=== PATIENT | male | born 1995 | race Two or more races ===

== ENCOUNTER 2024-11-28 09:17 | Outpatient (AMB) | payer OTHER, SELFPAY ==
--- NOTE | 2024-11-28 09:17 | MHC.PC.OV ---
Vital Signs 11/28/24 09:24 Height 5 ft 3.39 in Weight 146 lb BMI 25.5 BP 110/61 Respiration 16 Pulse 72 Pulse Source Pulse Oximeter Temp 97.5 F Temp Source Temporal Artery Scan Pulse Oximetry (%) 99 Oxygen Delivery Method Room Air Intake Visit Reasons: establish care Pay Station Department Manager Required: Yes Pay Station Department Manager Language: Indonesian Creole Pay Station Department Manager Name: [id number] Accompanied by: Self / Same As Patient Allergies No Known Allergies Allergy (Verified 11/28/24 09:40) Medication List - Last Reconciled 11/28/24 by Soumya Marshall PA-C No Known Home Meds Tobacco use date assessed: 11/28/24 Dental Screening Dental Screen Date: 11/28/24 Did you have a dental visit in the last 12 months?: Yes Did you have a dental problem in the last 6 months where you did not have access to dental care?: No Was dental information given to patient?: Patient has dentist HPI establish care HPI Details The patient is a 29-year-old male presenting for establishment of primary care, for an annual physical exam and in addition to discuss intermittent headaches, back pain, groin pain. The patient reports experiencing headaches, back pain and groin pain intermittently. These symptoms occur sometimes and are not constant. He also mentions occasional groin pain without any associated urinary symptoms such as discharge or burning during urination. The patient denies any significant past medical history and is not currently taking any medications. There is no family history of cancer or other significant illnesses. He denies any other abdominal pain, chest pain, or shortness of breath at the time of the visit. The patient has not seen a doctor in quite some time, prompting the recommendation for blood work to assess for anemia, kidney function, liver function, diabetes, and sexually transmitted diseases. He is advised to undergo fasting before the blood work. The patient also reports symptoms of anxiety and depression, for which a referral to a therapist or psychiatrist is considered. Social Patient is Creole speaking [facility] Medical History (Updated 11/28/24 @ 10:03 by Soumya Marshall PA-C) Anxiety and depression Groin pain Annual physical exam Intermittent headache Back pain LLQ abdominal pain Polish Creole speech language therapist needed Depression General medical exam Establishing care with new doctor, encounter for Family History Father No problems noted. Mother No problems noted. Social History Housing: Apartment Alcohol intake: current Alcohol intake frequency: holidays/special occasions only Alcohol type: beer Patient Tobacco Use Status: Never used Tobacco service: No Current occupational status: employed Cognitive needs: No Hearing needs: No Vision needs: No Questionnaire PHQ-9 Over the last 2 weeks, how often have you been bothered by any of the following problems? 1. Little interest or pleasure in doing things: nearly every day 2. Feeling down, depressed, or hopeless: several days 3. Trouble falling or staying asleep, or sleeping too much: nearly every day 4. Feeling tired or having little energy: nearly every day 5. Poor appetite or overeating: not at all 6. Feeling bad about yourself - or that you are a failure or have let yourself or your family down: not at all 7. Trouble concentrating on things, such as reading the newspaper or watching television: nearly every day 8. Moving or speaking so slowly that other people could have noticed. Or the opposite - being so fidgety or restless that you have been moving around a lot more than usual: several days 9. Thoughts that you would be better off or of hurting yourself in some way: not at all Total score: 14 Depression Screening Interpretation: Positive Depression Screening Follow-up: Community Mental Health Worker F/U Depression Screening Done: Yes 58200 - PHQ-9 Billing: Yes Source: Developed by Drs. Maxx Grace, Valeri Post, Lv Suazo and colleagues, with an educational andrew from [employer]. Thrive Questionnaire Date Thrive assessed: 11/28/24 I am a: Patient What is your living situation today?: I have a steady place to live Within the past 12 months, did the food you bought not last and you didn't have the money to get more?: Never true Within the past 12 months, did you worry whether your food would run out before you got money to buy more?: Never true Do you have trouble paying for medicines?: No Do you have trouble getting transportation to medical appointments?: No Do you have trouble paying your heating and electricity bill?: No Do you have trouble taking care of your child, family member or friend?: No Do you have trouble with day-to-day activities such as bathing, preparing meals, shopping, managing finances, etc.?: No Are you currently unemployed and looking for a job?: No Are you interested in more education?: No Please select the resources that you would like help with: None THRIVE Score: 0 AUDIT C Alcohol Use Questionnaire (AUDIT-C) 1. How often do you have a drink containing alcohol?: Monthly or less 2. How many drinks containing alcohol do you have on a typical day when you are drinking?: 1 or 2 3. How often do you have six or more drinks on one occasion?: Never Total Score: 1 Score Reviewed/Action Taken: No HEDY-7 AMB Questionnaire HEDY-7 Date HEDY - 7 assessed: 11/28/24 Feeling nervous, anxious, or on edge: 0 = Not at all Not being able to stop or control worryin = Not at all Worrying too much about different things: 0 = Not at all Trouble relaxin = Not at all Being so restless that it is hard to sit still: 0 = Not at all Becoming easily annoyed or irritable: 0 = Not at all Feeling afraid as if something awful might happen: 0 = Not at all Total HEDY-7 score (0-4 normal; 5-9 mild; 10-14 moderate; 15-21 severe): 0 Source: Developed by Drs. Maxx Grace, Valeri Post, Lv Suazo and colleagues, with an educational andrew from [employer]. HEDY-7 Assessment Billing HEDY-7 Assessment Tool: HEDY-7 Assessment 19252 Review of Systems Const Details: - Cardiovascular: Denies chest pain. Denies orthopnea or syncope. - Neurological: Reports intermittent headaches. Denies dizziness or balance issues. - Musculoskeletal: Reports intermittent back pain. Denies joint swelling or stiffness. - Genitourinary: Reports occasional groin pain. Denies dysuria or hematuria. - Psychological: Reports anxiety and depression. Physical exam (Primary Care) Vital Signs: Last Vital Signs Temp 97.5 F 11/28/24 09:24 Pulse 72 11/28/24 09:24 Resp 16 11/28/24 09:24 BP 110/61 11/28/24 09:24 Pulse Ox 99 11/28/24 09:24 Oxygen Delivery Method Room Air 11/28/24 09:24 Care Plan Goal for BP management: <140/90 BMI result Body Mass Index 25.5 normal bmi Tobacco/Smoking Status: Tobacco use Status Tobacco use date assessed 11/28/24 11/28/24 09:23 Patient Tobacco Use Status Never used Tobacco 11/28/24 09:31 PHQ-9: PHQ-9 Score PHQ-9: Total score 14 11/28/24 09:38 Depression Screening Interpretation: Positive Depression Screening Follow-up: Community Mental Health Worker F/U Thrive Assessment: Date of Thrive Assessment Date Thrive assessed 11/28/24 11/28/24 09:23 Const Other: Appearance: Alert. Oriented X3. No acute distress. Head: Normal external exam. Normocephalic. Atraumatic. Eyes: Pupils are equal, round, and reactive to light. Extraocular movements intact. Conjunctiva and sclera normal. Eyelids normal. Ears: External auditory canal normal. Tympanic membranes normal. Throat: Pharynx normal. Uvula midline. Moist mucous membranes. Neck: Normal inspection. Neck supple. Full range of motion. No adenopathy. Thyroid Normal. No meningeal signs. No neck mass noted. Cardiovascular: Normal heart rate and rhythm. Heart sound normal. No murmurs noted. Pulses normal throughout. Respiratory: No respiratory distress. Painless inspiration. Breath sounds normal. No wheezes/rales/rhonchi noted. Chest nontender. No accessory muscle usage noted or decreased air movement noted. Abdomen: Soft and mild tenderness to palpation to left lower quadrant/inguinal area. Bowel sounds normal in all 4 quadrants. No distention noted. No organomegaly noted. No visible injury noted. Back: Pain noted on both sides upon tapping over the kidneys. Full range of motion noted. Skin: Skin warm and dry. Normal skin color. Normal skin turgor. No rashes/lesions/lacerations noted. Extremities: No lower extremity edema. Extremities exhibit normal range of motion. Extremities nontender. Neuro: Oriented X 3. No motor deficit. No sensory deficit. Reflexes normal. Coding Level of Care Code New Pt Level 4 (55591) New Pt Prev Care 18-39yr(56402 Diagnoses Annual physical exam Z00.00 Establishing care with new doctor, encounter for Z76.89 Intermittent headache R51.9 Back pain M54.9 Groin pain R10.30 Anxiety and depression F41.9; F32.A Additional Codes PHQ-9 - 31064 - PHQ-9 Billing: Yes ([id number]) HEDY-7 Assessment Billing - HEDY-7 Assessment Tool: HEDY-7 Assessment 71678 ([id number]) Time Spent (min) 60 Assessment & Plan Assessment & Plan (1) Annual physical exam: Code(s): Z00.00 - Encounter for general adult medical examination without abnormal findings Category: Medical (2) Establishing care with new doctor, encounter for: Code(s): Z76.89 - Persons encountering health services in other specified circumstances Category: Medical (3) Intermittent headache: Code(s): R51.9 - Headache, unspecified Category: Medical Plan: The patient experiences intermittent headaches. Blood work is ordered to rule out underlying causes such as anemia or metabolic disorders. Patient has a normal neuro exam. Condition is not present at this time and intermittent condition is chronic and stable will continue to monitor. (4) Back pain: Code(s): M54.9 - Dorsalgia, unspecified Category: Medical Plan: The patient reports intermittent back pain. Blood work is ordered to assess for any underlying conditions contributing to the pain. Lumbar spine x-ray ordered. Condition is chronic and stable will continue to monitor. (5) Groin pain: Code(s): R10.30 - Lower abdominal pain, unspecified Category: Medical Plan: The patient reports occasional groin pain without urinary symptoms. A CT scan of the abdomen and pelvis is ordered to evaluate the cause of the pain. (6) Anxiety and depression: Code(s): F41.9 - Anxiety disorder, unspecified; F32.A - Depression, unspecified Category: Medical Plan: The patient reports symptoms of anxiety and depression. A referral to a therapist or psychiatrist is considered for further evaluation and management. Plan Plan Patient was informed and verbally consented to the use of an ambient scribe for clinic note documentation during this visit. 1. Headache The patient experiences intermittent headaches. Blood work is ordered to rule out underlying causes such as anemia or metabolic disorders. 2. Back Pain The patient reports intermittent back pain. Blood work is ordered to assess for any underlying conditions contributing to the pain. X-ray ordered. 3. Groin Pain The patient reports occasional groin pain without urinary symptoms. A CT scan of the abdomen and pelvis is ordered to evaluate the cause of the pain. 4. Anxiety And Depression The patient reports symptoms of anxiety and depression. A referral to a therapist or psychiatrist is considered for further evaluation and management. 5. Preventative Care Blood work is recommended to assess overall health, including screening for sexually transmitted diseases. The patient is advised to fast before the blood work. I discussed with the patient the importance of conducting blood work to assess his overall health, including checking for anemia, kidney and liver function, diabetes, and sexually transmitted diseases. I also recommended a CT scan to evaluate the cause of his groin pain and considered a referral to a therapist or psychiatrist for his anxiety and depression symptoms. The patient was advised to fast before the blood work and was informed about the follow-up process based on the results. Orders: Orders C Reactive Protein Today Z00.00 - Encounter for general adult medical examination without abnormal findings Complete Blood Count Auto Diff Today Z00.00 - Encounter for general adult medical examination without abnormal findings Hemoglobin A1c Today Z00.00 - Encounter for general adult medical examination without abnormal findings TSH reflex Free T4 Today Z00.00 - Encounter for general adult medical examination without abnormal findings Creatine Kinase Total Today Z00.00 - Encounter for general adult medical examination without abnormal findings Vitamin B12 and Folate Today Z00.00 - Encounter for general adult medical examination without abnormal findings Magnesium Today Z00.00 - Encounter for general adult medical examination without abnormal findings CT NG by PCR Today Z00.00 - Encounter for general adult medical examination without abnormal findings, Z76.89 - Persons encountering health services in other specified circumstances Comprehensive [place]. Panel Fast Today Z00.00 - Encounter for general adult medical examination without abnormal findings Liver Panel Today Z00.00 - Encounter for general adult medical examination without abnormal findings Lipid Panel Today Z00.00 - Encounter for general adult medical examination without abnormal findings PSA,Total (Free>4and<10) Today Z00.00 - Encounter for general adult medical examination without abnormal findings Vitamin D 25-OH Total Today Z00.00 - Encounter for general adult medical examination without abnormal findings HIV Ab/Ag Today Z20.2 - Contact with and (suspected) exposure to infections with a predominantly sexual mode of transmission RPR Monitor reflex titer Today Z00.00 - Encounter for general adult medical examination without abnormal findings Hepatitis A,B,C Profile Today Z00.00 - Encounter for general adult medical examination without abnormal findings T Spot TB Today Z00.00 - Encounter for general adult medical examination without abnormal findings, Z76.89 - Persons encountering health services in other specified circumstances ECG 12 lead EKG Today F32.A - Depression, unspecified, Z00.00 - Encounter for general adult medical examination without abnormal findings, Z75.8 - Other problems related to medical facilities and other health care, Z76.89 - Persons encountering health services in other specified circumstances CT abdomen pelvis w IV con Today R10.32 - Left lower quadrant pain, Z75.8 - Other problems related to medical facilities and other health care XR lumbar spine 4V min Today M54.9 - Dorsalgia, unspecified Referrals Psychiatry Outpatient Consultation Service F32.A - Depression, unspecified, F41.9 - Anxiety disorder, unspecified, Z75.8 - Other problems related to medical facilities and other health care Psychiatry Referral F32.A - Depression, unspecified, Z75.8 - Other problems related to medical facilities and other health care Patient Instructions: - Fast for 10-12 hours before going for blood work. You can drink water. - Visit the lab for blood work without an appointment. The address is provided. - Expect a call for a CT scan appointment to evaluate groin pain. - Consider seeing a therapist or psychiatrist for anxiety and depression.
[2024-11-28 09:24] VITALS: BP 110/61; PULSE 72; RESP 16; TEMP 36.4; O2SAT 99; BMI 25.5
== END 2024-11-28 09:56 | disposition home or self-care (01) ==
LOC: HO.HMCSH 09:17
PROVIDERS: PCP Internal Medicine; Visit Provider Physician Assistant Medical
DX: Z00.00 Encounter for general adult medical examination without abnormal findings (principal); R51.9 Headache, unspecified; M54.9 Dorsalgia, unspecified; R10.30 Lower abdominal pain, unspecified; F41.9 Anxiety disorder, unspecified; F32.A Depression, unspecified; Z76.89 Persons encountering health services in other specified circumstances

== ENCOUNTER → 2024-11-28 09:17 | Outpatient (BNVA) | payer OTHER, SELFPAY | PROVIDERS: PCP Internal Medicine; Visit Provider Physician Assistant Medical | DX: Z00.00 Encounter for general adult medical examination without abnormal findings (principal); R51.9 Headache, unspecified; R10.30 Lower abdominal pain, unspecified; M54.9 Dorsalgia, unspecified; F41.9 Anxiety disorder, unspecified; F32.A Depression, unspecified; Z76.89 Persons encountering health services in other specified circumstances | CPT/HCPCS: 96127; 99202; 99385 ==

== ENCOUNTER 2024-12-02 09:58 | Outpatient (AMB) | payer OTHER, SELFPAY ==
--- NOTE | 2024-12-02 10:04 | AM.OFFWIN_ITS ---
Intake Vital Signs 12/02/24 10:05 Height 5 ft 3 in Weight 147 lb BMI 26.0 BP 110/66 Blood Pressure Location Lt brachial Position Sitting Pulse 66 Pulse Source Pulse Oximeter Temp 98.6 F Temp Source Oral Pulse Oximetry (%) 99 Oxygen Delivery Method Room Air Intake Visit Reasons: EP Pain in groin area Intake Note: pt presents with left lower abdominal pain and low back pain for 5 months Patient Tobacco Use Status: Never used Tobacco Allergies No Known Allergies Allergy (Verified 12/02/24 10:08) Medication List - Last Reconciled 12/02/24 by Blayne Tilley MD No Known Home Meds Do you need a note to return to daycare/school/sports/work: No HPI EP Pain in groin area HPI Details History - The patient is a 29-year-old male pres enting with urinary frequency - Urinary frequency has been persistent, with no associated dysuria or penile discharge. - sometimes accompanied by back pain. - The patient just had his PE with PCP o n 23 of this month, i see there is lab order in system that he has not done yet. - I have added UA Problem List - Urinary frequency - Back pain Patient Instructions - Follow up with the lab next door for u rine and blood tests . Review of Systems - General: No fever no chills - Neurological: No headaches no dizziness - Ear nose throat: No sore throat no hearing difficulty no ear pain - Cardiovascular: No syncope, no chest pain, no palpitations - Gastrointestinal: No nausea vomiting or diarrhea Physical Exam - General: No acute distress - HEENT: No acute findings - Neck: Supple - Respiratory system: Able to talk in f ull sentences, no audible wheeze - Cardiovascular: S1-S2 regular in rate and rhythm - Gastrointestinal: No pain - Genital exam benign - Back mild discomfort left flank with p ercussion no mid back pain - Extremities: No new findings - ROUTING MACHINE OPERATOR: Alert awake oriented x3 motor se nsory intact - Skin: Normal turgor PFSH Medical History Anxiety and depression Groin pain Annual physical exam Intermittent headache Back pain LLQ abdominal pain Serbian Creole recovery room nurse needed Depression General medical exam Establishing care with new doctor, encounter for Family History Father No problems noted. Mother No problems noted. Social History Housing: Apartment Alcohol intake: current Alcohol intake frequency: holidays/special occasions only Alcohol type: beer Patient Tobacco Use Status: Never used Tobacco service: No Current occupational status: employed Cognitive needs: No Hearing needs: No Vision needs: No Physical Exam Vital Signs: Last Vital Signs Temp 98.6 F 12/02/24 10:05 Pulse 66 12/02/24 10:05 BP 110/66 12/02/24 10:05 Pulse Ox 99 12/02/24 10:05 Oxygen Delivery Method Room Air 12/02/24 10:05 BMI result Body Mass Index 26.0 Assessment & Plan Assessment & Plan (1) Frequent urination: Code(s): R35.0 - Frequency of micturition Plan History - The patient is a 29-year-old male presenting with urinary frequency - Urinary frequency has been persistent, with no associated dysuria or penile discharge. - sometimes accompanied by back pain. - The patient just had his PE with PCP on of this month, i see there is lab order in system that he has not done yet. - I have added UA Problem List - Urinary frequency - Back pain Patient Instructions - Follow up with the lab next door for urine and blood tests . Orders: Orders UA CC w/rflx Micro + Cult Today R35.0 - Frequency of micturition Coding Level of Care Code Est Pt Level 3 (58644) Diagnoses Frequent urination R35.0
[2024-12-02 10:05] VITALS: BP 110/66; PULSE 66; TEMP 37; O2SAT 99; BMI 26.0
== END 2024-12-02 11:17 | disposition home or self-care (01) ==
PROVIDERS: PCP Internal Medicine; Visit Provider Internal Medicine
DX: R35.0 Frequency of micturition (principal)

== ENCOUNTER 2024-12-02 09:58 | Outpatient (REF) | payer OTHER, SELFPAY ==
[2024-12-02 13:01] LABS: MANUAL DIFF FLAG NO
[2024-12-02 13:09] LABS: Appearance Urine Clear; Color Urine Yellow; Glucose Urine UA Negative (Negative); Leukocyte Esterase Urine Negative (Negative); Nitrite Urine Negative (Negative); Specific Gravity - Urine 1.015 (1.005-1.025); Urine Blood Negative (Negative); Urine Ketones Negative (Negative); Urine Protein Negative (Neg-Trace)
[2024-12-02 13:12] LABS: Basophils Percent Auto 0.3 % (0-2); Eosinophils Absolute Auto 0.1 X10*3/uL (0.0-0.4); Hematocrit 46.7 % (42.0-52.0); Hemoglobin 14.2 g/dl (14.0-18.0); Imm Gran Abs Auto 0.03 X10*3/uL (0.00-0.03); Imm Gran Pct Auto 0.4 % (0.0-0.4); Lymphocytes Absolute Auto 2.2 X10*3/uL (1.2-4.9); Lymphocytes Percent Auto 30.9 % (20-40); Mean Corpuscular HGB Conc 30.4 g/dl (31.0-36.0); Mean Corpuscular Volume 72.4 fL (80.0-98.0); Mean Platelet Volume 11.2 fL (9.4-12.4); Monocytes Absolute Auto 0.4 X10*3/uL (0.1-1.2); Monocytes Percent Auto 6.1 % (2-11); Neutrophils Absolute Auto 4.5 x10*3/uL (2.0-8.3); Neutrophils Percent Auto 61.3 % (45-73); Platelet Count 186 X10*3/uL (160-400); Red Blood Count 6.45 X10*6/uL (4.60-5.80); Red Cell Distribution Width 15.9 % (11.0-16.0); White Blood Count 7.3 X10*3/uL (4.8-10.8)
[2024-12-02 13:29] LABS: Estimated Average Glucose 123 mg/dL; Hemoglobin A1c % 5.9 % (<6.0)
[2024-12-02 13:55] LABS: Alanine Aminotransferase 32 U/L (0-40); Albumin Level 4.8 g/dL (3.5-5.0); Alkaline Phosphatase 59 U/L (39-117); Anion Gap 9 (12-20); Aspartate Amino Transferase 30 U/L (5-37); Bilirubin Direct < 0.2 mg/dL (0.0-0.5); Bilirubin Total 0.2 mg/dL (0.0-1.0); Blood Urea Nitrogen 10 mg/dL (9-16); C Reactive Protein 0.17 mg/dL (< or = 0.50); Calcium 9.4 mg/dL (8.4-10.2); Carbon Dioxide 29 mmol/L (22-29); Chloride 104 mmol/L (96-108); Cholesterol 143 mg/dL (<200); Estimated Glomerular Filt Rate > 60; Glucose Fasting 100 mg/dL (60-99); HDL Cholesterol 43 mg/dL (>40); LDL Cholesterol Calculated 78 mg/dL (<100); Magnesium 2.1 mg/dL (1.6-2.6); Potassium 4.5 mmol/L (3.3-5.1); Sodium 137 mmol/L (135-145); TSH reflex Free T4 1.25 uIU/mL (0.32-4.0); Total Protein 7.9 g/dL (6.5-8.0); Triglycerides 113 mg/dL (<150)
[2024-12-02 13:58] LABS: HBS Num1 0.87 mIU/mL (0-7.99); HBsAGNum1 0.43 S/CO (0.00-0.99); HIV AB/AG Nonreactive (Nonreactive); HIV Num 1 0.05 S/CO (0.00-0.99); Hepatitis A Antibody IgM 0.22 Index (0-0.79); Hepatitis B Core Antibody Nonreactive (Nonreactive); Hepatitis B Surface Antigen Negative (Negative); ~HepC Num1 0.11 S/CO (0.00-0.79); ~Hepatitis A Antibody IgM Nonreactive (Nonreactive); ~Hepatitis B Surface Antibody NONREACTIVE (Nonreactive); ~Hepatitis C Antibody Nonreactive (Nonreactive)
[2024-12-02 14:01] LABS: PSA,Total (Free>4and<10) 1.45 ng/mL (0.00-4.00)
[2024-12-02 14:17] LABS: Folate 9.6 ng/mL (> or = 4.0); Vitamin B12 331 pg/mL (200-900)
[2024-12-02 15:11] LABS: CT PCR Urine NOT DETECTED (Not Detect.); NG PCR Urine NOT DETECTED (Not Detect.)
[2024-12-05 13:13] LABS: TS Negative Control Passed; TS Panel A 1; TS Panel B 0; TS Positive Control Passed; TSpotTB Negative (Negative)
[2024-12-06 09:53] LABS: RPR Rapid Plasma Reagin NON-REACTIVE (NON-REACTIVE)
== END 2024-12-02 09:59 | disposition home or self-care (01) ==
LOC: HO.HMGCLDS 09:58
PROVIDERS: Physician Assistant Medical; PCP Internal Medicine; Visit Provider Internal Medicine
DX: Z00.00 Encounter for general adult medical examination without abnormal findings (principal); R35.0 Frequency of micturition; Z76.89 Persons encountering health services in other specified circumstances; Z20.2 Contact with and (suspected) exposure to infections with a predominantly sexual mode of transmission
CPT/HCPCS: 36415; 80053; 80061; 80076; 81003; 82248; 82306; 82550; 82607; 82746; 83036; 83735; 84153; 84443; 85025; 86140; 86481; 86592; 86704; 86706; 86709; 86803; 87340; 87389; 87491; 87591; 99212